=== PATIENT | female | born 1940 | race Caucasian/White ===

== ENCOUNTER → 2017-03-14 | Outpatient (CLI) | payer MEDICARE, BC ==
[~2017-03-14] MED LIST: IRON325 MG PO; MULTIPLE VITAMI1 CAP PO; PAXIL 20MG20 MG PO; PROTONIX 40MG T40 MG PO; SYNTHROID0.05 MG/TA PO; XANAX 0.5MG0.5 MG PO
== END ==
LOC: MC.RAD 10:10
DX: Z12.31 Encounter for screening mammogram for malignant neoplasm of breast (principal)

== ENCOUNTER → 2017-03-18 | Outpatient (CLI) | payer MEDICARE, BC | LOC: COL.PUL 07:46 | DX: R06.02 Shortness of breath (principal) ==

== ENCOUNTER → 2018-04-12 | Outpatient (CLI) | payer MEDICARE, BC | LOC: MC.RAD 10:28 | DX: Z12.31 Encounter for screening mammogram for malignant neoplasm of breast (principal); N64.89 Other specified disorders of breast ==

== ENCOUNTER → 2018-04-18 | Outpatient (CLI) | payer MEDICARE, BC | LOC: MC.RAD 13:53 | DX: N60.02 Solitary cyst of left breast (principal); N64.89 Other specified disorders of breast ==

== ENCOUNTER → 2019-05-21 | Outpatient (CLI) | payer MEDICARE, BC | LOC: MC.RAD 13:42 | DX: Z12.31 Encounter for screening mammogram for malignant neoplasm of breast (principal); N63.20 Unspecified lump in the left breast, unspecified quadrant ==

== ENCOUNTER → 2019-06-04 | Outpatient (CLI) | payer MEDICARE, BC | LOC: MC.RAD 12:42 | DX: N60.02 Solitary cyst of left breast (principal) ==

== ENCOUNTER → 2019-09-11 | Outpatient (CLI) | payer MEDICARE, BC ==
[2019-09-11 15:39] LABS: BASO # 0.1 (0.0-0.2); BASO % 1.1 % (0.0-2.0); EOS # 0.4 (0.0-0.7); EOS % 4.4 % (0-4.0); GRAN % 61.1 % (42.2-75.2); HEMATOCRIT 38.3 % (37.0-47.0); HEMOGLOBIN 12.2 g/dl (12.5-16.0); LYMPH # 1.9 (1.2-3.4); LYMPH % 23.8 % (20.0-51.0); MEAN CELL VOLUME 100 fl (80.0-100.0); MEAN CORPUSCULAR HEMOGLOBIN 32 pg (27.0-31.0); MEAN CORPUSCULAR HGB CONC 32 g/dl (33.0-37.0); MEAN PLATELET VOLUME 9.4 fl (7.4-10.4); MONO # 0.8 (0.1-0.6); MONO % 9.4 % (1.7-9.3); PLATELET COUNT 309 K/mm3 (130-400); RED BLOOD COUNT 3.84 M/mm3 (4.10-5.30); REDCELL DISTRIBUTION WIDTH-CV 13.1 % (11.5-14.5)
[2019-09-11 15:43] LABS: ALANINE AMINOTRANSFERASE 22 U/L (9-52); ALBUMIN 4.1 gm/dL (3.5-5.0); ALKALINE PHOSPHATASE 90 U/L (50-136); ANION GAP 9 mmol/L (7-16); AST,SGOT 28 U/L (15-37); BILIRUBIN,TOTAL 0.3 mg/dL (0.0-1.0); BLOOD UREA NITROGEN 19 mg/dL (7-17); CALCIUM 10.5 mg/dL (8.4-10.2); CARBON DIOXIDE 27 mmol/L (22-30); CHLORIDE 106 mmol/L (98-107); CREATININE, serum 0.86 (0.52-1.25); GLUCOSE 96 mg/dL (74-106); POTASSIUM 4.3 mmol/L (3.4-5.0); SODIUM 142 mmol/L (137-145); TOTAL PROTEIN 7.2 gm/dL (6.4-8.2)
[2019-09-11 16:11] LABS: TROPONIN-I < 0.012 ng/mL (0.000-0.035)
== END ==
LOC: ZCOL.LAB 15:23
PROVIDERS: Nurse Practitioner Family
DX: R06.02 Shortness of breath (principal)

== ENCOUNTER → 2019-09-19 | Outpatient (CLI) | payer MEDICARE, BC | LOC: COL.CARD 08:23 | DX: R00.2 Palpitations (principal) ==

== ENCOUNTER → 2019-09-26 | Outpatient (CLI) | payer MEDICARE, BC ==
[~2019-09-26] VITALS: Ht 165.1 cm; Wt 95.4 kg
[~2019-09-26] MED LIST changes: +FERROUSGLUC256MG PO; -IRON325 MG PO
[2019-09-26 10:50] VITALS: BP 150/85; PULSE 76
[2019-09-26 11:59] VITALS: BP 150/83; PULSE 99
[2019-09-26 12:00] VITALS: BP 175/86; PULSE 97
[2019-09-26 12:01] VITALS: BP 170/89; PULSE 99
[2019-09-26 12:02] VITALS: BP 172/82; PULSE 90
== END ==
LOC: COL.CARD 10:30
DX: R00.2 Palpitations (principal); R06.02 Shortness of breath
CPT/HCPCS: A9500; J2785

== ENCOUNTER 2019-10-26 06:02 | Day surgery (SDC) | payer MEDICARE, BC ==
[~2019-10-26] VITALS: Ht 165.2 cm; Wt 94.2 kg
[2019-10-26] VITALS (12 sets, daily range): BP systolic 122–160; BP diastolic 53–85; PULSE 64–77; TEMP 98.2
[2019-10-26 06:31] LABS: HEMATOCRIT 41.7 % (37.0-47.0); HEMOGLOBIN 13.1 g/dl (12.5-16.0); MEAN CELL VOLUME 96 fl (80.0-100.0); MEAN CORPUSCULAR HEMOGLOBIN 30 pg (27.0-31.0); MEAN CORPUSCULAR HGB CONC 31 g/dl (33.0-37.0); MEAN PLATELET VOLUME 8.9 fl (7.4-10.4); PLATELET COUNT 331 K/mm3 (130-400); RED BLOOD COUNT 4.35 M/mm3 (4.10-5.30); REDCELL DISTRIBUTION WIDTH-CV 12.5 % (11.5-14.5)
[2019-10-26 06:44] LABS: INR 0.9 (0.8-3.0); PROTHROMBIN TIME 10.8 SECONDS (9.7-12.8)
[2019-10-26 06:47] LABS: PARTIAL THROMBOPLASTIN TIME 29.2 SECONDS (26.0-37.0)
[2019-10-26 06:51] LABS: CALCIUM 10.4 mg/dL (8.4-10.2); CREATININE, serum 0.93 (0.52-1.25); POTASSIUM 3.9 mmol/L (3.4-5.0)
[2019-10-26] MEDS ORDERED: PAXIL 20MG20 MG PO (08:08)
[2019-10-26] MEDS ORDERED: TYLENOL 500MG500 MG PO (08:10)
[2019-10-26] MEDS ORDERED: CITRACAL + D CA1 TAB PO (08:11)
[2019-10-26] MEDS ORDERED: ESTRACE0.1 MG/GM VG (08:11)
[2019-10-26] MEDS ORDERED: KRILL OIL 3001 EACH PO (08:12)
[2019-10-26] MEDS ORDERED: NAPROSYN500 MG PO (08:13)
--- NOTE | 2019-10-26 08:48 | NUR ---
SEE MERGE DOCUMENTATION FOR MEDICATION ADMINISTRATION TIMES AND INTRA/POST PROCEDURE SEDATION ASSESSMENTS. PLAN FOR RIGHT RADIAL ACCESS; BARBEAU TEST POSITIVE TO RIGHT HAND.
[2019-10-26] MEDS ORDERED: LIPITOR20 MG PO (09:23)
[2019-10-26] MEDS ORDERED: TIAZAC120 MG PO (09:24)
--- NOTE | 2019-10-26 12:33 | NUR ---
Discharge instructions given to pt.pt verbalizes understanding.INT removed,catheter tip intact.
--- NOTE | 2019-10-26 12:41 | NUR ---
Pt escorted out via wheelchair by student nurse.
== END 2019-10-26 12:41 | disposition home or self-care (01) ==
LOC: COL.CAR 06:02
PROVIDERS: Internal Medicine Cardiovascular Disease
DX: I25.10 Atherosclerotic heart disease of native coronary artery without angina pectoris (principal); R94.39 Abnormal result of other cardiovascular function study; E78.2 Mixed hyperlipidemia; Z88.2 Allergy status to sulfonamides; Z79.52 Long term (current) use of systemic steroids; Z82.49 Family history of ischemic heart disease and other diseases of the circulatory system; Z82.3 Family history of stroke
CPT/HCPCS: J1644; J2250; J3010; Q9967

== ENCOUNTER → 2020-09-16 | Outpatient (CLI) | payer MEDICARE, BC ==
[~2020-09-16] MED LIST changes: +CITRACAL + D CA1 TAB PO; +ESTRACE0.1 MG/GM VG; +KRILL OIL 3001 EACH PO; +LIPITOR20 MG PO; +NAPROSYN500 MG PO; +TIAZAC120 MG PO; +TYLENOL 500MG500 MG PO
== END ==
LOC: MC.RAD 08:53
DX: Z12.31 Encounter for screening mammogram for malignant neoplasm of breast (principal)

== ENCOUNTER → 2021-10-08 | Outpatient (CLI) | payer MEDICARE | LOC: MC.RAD 13:26 | DX: Z12.31 Encounter for screening mammogram for malignant neoplasm of breast (principal); N64.89 Other specified disorders of breast ==

== ENCOUNTER → 2021-10-29 | Outpatient (CLI) | payer MEDICARE | LOC: MC.RAD 09:45 | DX: N63.21 Unspecified lump in the left breast, upper outer quadrant (principal) ==

== ENCOUNTER → 2021-11-10 | Outpatient (CLI) | payer MEDICARE | LOC: MC.RAD 09:47 | DX: N64.89 Other specified disorders of breast (principal); N63.21 Unspecified lump in the left breast, upper outer quadrant ==

== ENCOUNTER → 2021-12-07 | Outpatient (CLI) | payer MEDICARE ==
[~2021-12-07] MED LIST changes: +MELATONIN5 M1 SL; +NORCO 325 MG-51 TAB PO; +SYNTHROID 0.0.025 MG PO
== END ==
LOC: MC.RAD 12:50
DX: C50.412 Malignant neoplasm of upper-outer quadrant of left female breast (principal)
CPT/HCPCS: A9520; C1769

== ENCOUNTER 2021-12-08 06:51 | Day surgery (SDC) | payer MEDICARE ==
[2021-12-08] VITALS (7 sets, daily range): BP systolic 132–153; BP diastolic 57–81; PULSE 79–94; TEMP 97.8–98.8
[~2021-12-08] VITALS: Ht 165.1 cm; Wt 93.6 kg
[~2021-12-08 06:51] MED LIST changes: -MELATONIN5 M1 SL; -NORCO 325 MG-51 TAB PO; -SYNTHROID 0.0.025 MG PO
[2021-12-08] MEDS ORDERED: SYNTHROID 0.0.025 MG PO (08:09)
[2021-12-08] MEDS ORDERED: MELATONIN5 M1 SL (08:11)
[2021-12-08] MEDS ORDERED: NORCO 325 MG-51 TAB PO (12:10)
--- NOTE | 2021-12-08 13:00 | NUR ---
PATIENT TRANSFERRED FROM PACU TO LAC UNIT PER CART ACCOMPANIED BY SAW TAILER. RECEIVED VERBAL REPORT. MONITORS APPLIED. VSS ON ROOM AIR. PATIENT WAS TRANSFERRED WITH 02 AND PATIENT REMOVED. PATIENT STATES INCISION SITE IS SORE BUT TOLERABLE. PATIENT TALKS WITH SON AND STAFF. DRESSING REVIEWED --CDI. SON IN ROOM. 1310 PATIENT GIVEN COFFEE TO DRINK.
--- NOTE | 2021-12-08 13:30 | NUR ---
VSS ON ROOM AIR. PATIENT TOLERATES COFFEE WITHOUT PROBLEMS. PATIENT GIVEN TOAST TO EAT. PATIENT STATES DISCOMFORT IS INCREASING.
--- NOTE | 2021-12-08 13:40 | NUR ---
VSS ON ROOM AIR. SAO2 MONITOR LOOSE ON FINGER. PATIENT TOLERATES TOAST WITHOUT PROBLEMS. SON ASSISTS IN THE ROOM. 1334 PATIENT GIVEN NORCO ORDERED FOR DISCOMFORT.
--- NOTE | 2021-12-08 13:45 | NUR ---
VSS ON ROOM AIR. PATIENT CONTINUES EATING TOAST AND TALKING WITH SON AND STAFF. VOICES NO C/O'S.
--- NOTE | 2021-12-08 14:00 | NUR ---
VSS ON ROOM AIR. PATIENT STATES PAIN MED IS STARTING TO HELP WITH DISCOMFORT. EATS TOAST WITHOUT PROBLEMS. PATIENT AMBULATES TO BATHROOM WITH 1 ASSIST. SLOW STEADY GAIT. PATIENT VOIDS WITHOUT PROBLEMS. 1415 IV DC'D WITH CATHETER TIP INTACT. PRESSURE AND BANDAGE APPLIED. 1420 DISCHARGE INSTRUCTIONS GIVEN VERBAL AND DISCHARGE PACKET PROVIDED. QUESTIONS ANSWERED AND PATIENT AND SON VOICED UNDERSTANDING. PATIENT CHANGES INTO STREET CLOTHES. 1430 DISCHARGE PER WHEEL CHAIR ACCOMPANIED BY AMB RN TO PRIVATE VECHILE DRIVEN BY SON.
== END 2021-12-08 14:30 | disposition home or self-care (01) ==
LOC: SDCO 06:51
DX: C50.412 Malignant neoplasm of upper-outer quadrant of left female breast (principal); Z17.0 Estrogen receptor positive status [ER+]; E03.9 Hypothyroidism, unspecified; E78.5 Hyperlipidemia, unspecified; I25.10 Atherosclerotic heart disease of native coronary artery without angina pectoris; I10 Essential (primary) hypertension; F32.A Depression, unspecified; L90.0 Lichen sclerosus et atrophicus; F41.9 Anxiety disorder, unspecified; D64.9 Anemia, unspecified; R60.0 Localized edema; Z79.899 Other long term (current) drug therapy; Z79.890 Hormone replacement therapy; Z79.52 Long term (current) use of systemic steroids
CPT/HCPCS: A4648; J0690; J1100; J1170; J2250; J2405; J2704; J2795; J3010; J7120

== ENCOUNTER 2022-03-09 06:20 | Outpatient (CLI) | payer MEDICARE ==
[2022-03-09] VITALS (10 sets, daily range): BP systolic 125–155; BP diastolic 71–90; PULSE 68–88; TEMP 97.8
[~2022-03-09] VITALS: Ht 165.1 cm; Wt 91.4 kg
[~2022-03-09 06:20] MED LIST changes: +ARIMIDEX1 MG PO; +CARDIZEM120 MG PO; +MELATONIN5 M1 SL; +NORCO 325 MG-51 TAB PO; +SYNTHROID 0.0.025 MG PO; +TEMOVATE0.05% TP
--- NOTE | 2022-03-09 08:20 | NUR ---
PROCEDURE CANCELLED BY DR MEJIA. UNABLE TO SAFETLY GET SPECIMENS. BOTH PT AND SON ARE INFORMED BY DR MEJIA AND WERE ALLOWED TO ASK QUESTIONS. THESE QUESTIONS ANSWERED BY DR MEJIA
== END 2022-03-12 13:08 ==
LOC: COL.RAD 06:20
DX: Z51.0 Encounter for antineoplastic radiation therapy (principal); R91.1 Solitary pulmonary nodule; C50.412 Malignant neoplasm of upper-outer quadrant of left female breast; Z17.0 Estrogen receptor positive status [ER+]
CPT/HCPCS: J2250; J3010

== ENCOUNTER → 2022-04-12 | Outpatient (CLI) | payer MEDICARE | LOC: MC.RAD 13:45 | DX: D05.12 Intraductal carcinoma in situ of left breast (principal); Z98.890 Other specified postprocedural states ==